=== PATIENT | male | born 1995 | race Two or more races ===

== ENCOUNTER 2024-04-18 09:56 | Emergency (ER) | payer MEDICAID, SELFPAY ==
[2024-04-18 10:20] VITALS: BP 154/88; PULSE 60; RESP 12; TEMP 36.8; O2SAT 99; BMI 29.5
--- NOTE | 2024-04-18 10:43 | XR_ITS ---
Examination: Abdomen sonogram, Limited Date and time of exam: April 18, 2024 1109 hours INDICATIONS: Onset right upper abdominal pain beginning one week ago Technique: Real-time vazquez scale transabdominal sonographic images of the upper abdomen obtained. Findings: Normal gallbladder Normal common bile duct 0.4 cm Pancreatic head 3.2 cm Liver 13.9 cm fatty liver no focal liver lesions Normal hepatopedal portal venous flow Patent IVC IMPRESSION: Normal gallbladder Fatty liver
--- NOTE | 2024-04-18 10:44 | PD.EDRME ---
Rapid Medical Screening Exam E Arrival date/time: 04/18/24 09:56 This is a 28-year-old female presents to the emergency department with complaints of right upper quadrant abdominal pain recently treated for H. pylori infection. No fever no nausea no vomiting. I have greeted and performed a focused initial assessment of this patient. Initial appropriate labs ordered at this time. A comprehensive ED assessment and evaluation of the patient and analysis of all test and completion of medical decision making process will be conducted by additional ED provider. Chief Complaint: Abdominal Pain Time Seen by Provider: 04/18/24 10:04 Vital signs: Vital Signs Temperature 98.3 F 04/18/24 10:20 Pulse Rate 60 04/18/24 10:20 Respiratory Rate 12 04/18/24 10:20 Blood Pressure 154/88 H 04/18/24 10:20 Pulse Oximetry (%) 99 04/18/24 10:20 Oxygen Delivery Method Room Air 04/18/24 10:20
[2024-04-18 11:01] LABS: Basophils % (Auto) 0 % (0-2.5); Eosinophils # (Auto) 0.1 Thou/mm3 (0.0-0.5); Eosinophils % (Auto) 1 % (0-10); Hematocrit 45.1 % (41.0-53.0); Hemoglobin 15.4 g/dL (13.5-16.0); Immature Granulocytes % (Auto) 0 % (0-0); Immature Granulocytes Auto 0.03 Thou/mm3 (0.00-0.00); Lymphocytes % (Auto) 25 % (10-50); Mean Corpuscular HGB Conc 34.1 g/dl (31.0-37.0); Mean Corpuscular Hemoglobin 29.7 pg (25.0-35.0); Mean Corpuscular Volume 87 fL (80-100); Monocytes # (Auto) 0.7 Thou/mm3 (0.0-0.8); Monocytes % (Auto) 8 % (0-12); Neutrophils # (Auto) 5.4 Thou/mm3 (1.8-7.7); Neutrophils % (Auto) 65 % (37-80); Nucleated Red Blood Cell % 0 /100 WBC (0); Platelet Count 263 Thou/mm3 (140-440); RDW Standard Deviation 40.1 fL (35.1-43.9); Red Blood Count 5.19 Miln/mm3 (4.50-5.90); White Blood Count 8.2 Thou/mm3 (3.8-10.6)
[2024-04-18 11:22] LABS: Collection Type, Urine Clean Catch
[2024-04-18] MEDS: MG HYD/AL HYD/SIME (Maalox Reg) SUSP 30 ML UDC PO (11:26)
[2024-04-18] MEDS: PANTOPRAZOLE 40 MG TABLET PO (11:26)
[2024-04-18 11:29] LABS: Bilirubin,Urine Negative (Negative); Blood,Urine Negative (Negative); Clarity,Urine Clear (Clear/Hazy); Color,Urine Yellow (Lt Yel-Yel); Glucose, Urine Negative (Negative); Ketones,Urine Trace (Negative); Leukocyte Esterase,Urine Negative (Negative); Nitrite,Urine Negative (Negative); PH,Urine 6.5 (5.0-7.0); Protein,Urine Trace (Neg - Trace); RBC,Urine 3 /hpf (0-3); Specific Gravity,Urine 1.028 (1.001-1.035); Squamous Epithelial Cell,Urine < 1 /hpf (0-5); Urobilinogen,Urine Negative mg/dL (0.0-1.0); WBC,Urine 1 /hpf (0-5)
[2024-04-18 11:30] LABS: Alanine Aminotransferase 22 U/L (10-49); Albumin/Globulin Ratio 1.8 (1.2-2.2); Alkaline Phosphatase 86 U/L (46-116); Anion Gap 7 (7-16); Aspartate Amino Transferase 24 U/L (0-34); BUN/Creatinine Ratio 15 Ratio (12-20); Bilirubin,Total 0.8 mg/dL (0.3-1.2); Blood Urea Nitrogen 12 mg/dL (9-23); Carbon Dioxide 28.4 mMol/L (20.0-31.0); Chloride 105 mMol/L (98-107); Creatinine (Component) 0.8 mg/dL (0.6-1.3); Estimated Creatinine Clearance 154.4 mL/min (>60); Globulin 2.8 gm/dL (2.3-3.5); Glucose 107 mg/dL (74-106); Lipase 33 U/L (12-53); Osmolality,Calculated 279 (275-295); Potassium 4.8 mMol/L (3.4-5.1); Sodium 140 mMol/L (136-145); Total Protein 7.8 gm/dL (5.7-8.2); eGFR > 60 See Note
--- NOTE | 2024-04-18 11:56 | EDNOTE_ITS ---
<Statement entered by Leslie Wilhelm MD - 04/18/24 12:28> As co-signing physician, I was present and available for consult prn. I concur with the plan and care as documented by the midlevel provider. ED Abdominal Pain RME/HPI General Chief Complaint: Abdominal Pain Stated complaint: RIGHT UPPER ABD PAIN x 7 DAYS Time seen by provider: 04/18/24 10:04 Arrival date/time: 04/18/24 09:56 RME / HPI RME / HPI narrative: 28-year-old female presents to the emergency department with complaints of right upper quadrant abdominal pain recently treated for H. pylori infection. This been ongoing for the last 7 days described as dull ache, severity mild. Radiating to the right lower chest. No fever no nausea no vomiting. Denies any fever. Denies any diarrhea or constipation. Patient was seen by PCP and was a dvised to go to chiropractor. Related Data Previous Rx's ?Medication ?Instructions ?Recorded ibuprofen 800 mg tablet 800 mg PO TID PRN pain #30 tabs 04/18/24 Allergies Allergy/AdvReac Type Severity Reaction Status Date / Time No Known Allergies Allergy Verified 04/18/24 09:58 Review of Systems Review of Systems Narrative Review of Systems: Review of system reviewed and within normal limits except mentioned in HPI ED Exam Narrative Physical exam: VITAL SIGNS: Reviewed. GENERAL APPEARANCE: Alert and interactive, follows commands, no acute distress, HEAD AND FACE: Non-traumatic. ENT: PERRL, pink conjunctivitis, eyelid no trauma, Mucous membrane moist. NECK: Supple, nontender, no nuchal rigidity. CHEST: No tenderness, no crepitus, no paradoxical movement, no retractions. LUNGS: Clear, well ventilated, symmetric, no rales, no wheezing, no ronchi, no stridor, good breath sounds bilaterally. HEART: Regular rate, regular rhythm, no murmur, no gallops. ABDOMEN: Soft, positive bowel sounds, nondistended, no guarding, right upper quadrant tenderness on deep palpation, no rebound, no masses, RECTAL: Deferred. GENITAL: Deferred. NEUROLOGICAL: Gross motor function intact sensory function intact, Appropriate for age. MUSCULOSKELETAL: low back nontender, full range of motion. EXTREMITIES: Nontender, full range of motion. SKIN: Color pink, dry, no rash, no lacerations, no abrasions, no contusions. LYMPHATICS: Deferred. Course Quality Measures none Orders Category Date Time Status US gall bladder Stat Exams 04/18/24 10:43 Completed CBC Stat Lab 04/18/24 10:49 Completed Comprehensive Metabolic Panel Stat Lab 04/18/24 10:49 Completed Lipase Stat Lab 04/18/24 10:49 Completed Urinalysis Stat Lab 04/18/24 11:05 Completed Pantoprazole [Protonix] Med 04/18/24 10:43 Discontinued 40 mg PO X1 ONE mg Hyd/Al Hyd/Christin Susp [Maalox Susp] Med 04/18/24 10:43 Discontinued 30 ml PO X1 ONE Vital Signs Vital signs: Vital Signs Temperature 98.3 F 04/18/24 10:20 Pulse Rate 60 04/18/24 10:20 Respiratory Rate 12 04/18/24 10:20 Blood Pressure 154/88 H 04/18/24 10:20 Pulse Oximetry (%) 99 04/18/24 10:20 Oxygen Delivery Method Room Air 04/18/24 10:20 Abdominal Pain MDM MDM Narrative MDM Narrative:: 28-year-old female presents to the emergency department with complaints of right upper quadrant abdominal pain recently treated for H. pylori infection. This been ongoing for the last 7 days described as dull ache, severity mild. Radiating to the right lower chest. No fever no nausea no vomiting. Denies any fever. Denies any diarrhea or constipation. Patient was seen by PCP and was advised to go to chiropractor. Laboratory workup all came back unremarkable. Ultrasound of the gallbladder also came back normal. Patient right upper quadrant pain could be muscular in nature. Patient will see a chiropractor according to him in few days. Patient data External records reviewed:: None Clinical information provided by:: patient Social determinants that could affect healthcare access:: none Patient has the following chronic illnesses:: None How is presenting disease/condition affected by chronic disease/condition?: no chronic disease Evaluation data The following diagnostics were reviewed and interpreted by me:: lab results and radiology exam(s) Lab and/or radiology exams considered but not ordered:: None Interpretation Summary: Laboratory couple came back normal, ultrasound gallbladder also came back unremarkable. Medications / Prescriptions Medications or Prescriptions considered but not ordered:: None Medication administrations:: Medication Administration History Discontinued Medications Al Hydrox/Mg Hydrox/Simethicone (Mg Hyd/Al Hyd/Christin (Maalox Reg) Susp 30 Ml Udc) 30 ml PO X1 ONE Stop: 04/18/24 10:44 Last Admin: 04/18/24 11:26 Dose: 30 ml Documented By: TM Pantoprazole Sodium (Pantoprazole 40 Mg Tablet) 40 mg PO X1 ONE Stop: 04/18/24 10:44 Last Admin: 04/18/24 11:26 Dose: 40 mg Documented By: TM Protonix and Maalox Consultations Consultation(s) initiated? (list below): No Diagnosis Differential diagnosis abdominal pain: abdominal pain, constipation and other (Gallstone) Most likely diagnosis given after review of the tests above:: Right upper quadrant pain, muscular Admission Indicated Admission indicated?: not indicated Explain why admission is indicated or not indicated:: Stable Admission Request Was there a request for admission?: No Disposition Plan Disposition Plan: Discharge Discharge Attestation Discharge Attestation: The patient was given an opportunity to ask questions and understood the discharge instructions. Discharge instructions specifically effects, indications for sooner follow up or return to the emergency department, and the expected course of current diagnosis. Patient condition: Stable Discharge Plan Plan Patient Disposition: HOME (Self Care) Disposition Comment: stable Prescriptions/Referrals Prescriptions/Med Rec: New ibuprofen 800 mg tablet 800 mg PO TID PRN (Reason: pain) Qty: 30 0RF Referrals: Jessee Younger MD [Primary Care Provider] - In 1 week Problem List Clinical Impression: Right upper quadrant abdominal pain Patient/Caregiver Discharge Instructions Discharge Activity: activity as tolerated Education Materials: Understanding the Pain Response Additional Instructions: Thank you for the opportunity for serving you today. You are stable for discharged . You are advised to: Follow-up with your PCP in 1 to 2 days Return to ED for worsening of symptoms Increase oral fluids Take medication as prescribed Print Language: Luxembourgish Stand Alone Forms: Yara Award Info., Patient Portal Info Letter OTIS/NATHAN Supervising Physician OTIS/NATHAN Supervising Physician: MD Brayden
== END 2024-04-18 12:00 | disposition home or self-care (01) ==
PROVIDERS: Nurse Practitioner Primary Care; Emergency Provider Emergency Medicine; PCP Internal Medicine
DX: R10.11 Right upper quadrant pain (principal)
CPT/HCPCS: 36415; 76705; 80053; 81001; 83690; 85025; 99284; A9270